=== PATIENT | male | born 1985 | race African-American/Black ===

== ENCOUNTER 2017-09-15 10:08 | Emergency (ER) | payer OTHER ==
[2017-09-15 10:16] VITALS: BP 133/75
--- NOTE | 2017-09-15 11:13 | ED Physician Documentation ---
PD HPI MALE - Stated complaint Stated Complaint: POST OP BLEEDING - Chief complaint Chief Complaint: General - History obtained from History obtained from: Patient - History of Present Illness Timing - onset: Today Timing - duration: Days (1) Timing - details: Abrupt onset Associated symptoms: Hematuria (he had circumcision 2 days ago in [facility] and today noted some blood in urine and slight bit at time of meatus. The incision looks okay.). No: Dysuria, Unable to urinate Similar symptoms before: Has not had sx before Recently seen: Surgery (circumcision 2 days ago) Review of Systems Constitutional: denies: Fever, Chills GI: denies: Abdominal Pain, Nausea, Vomiting, Diarrhea : denies: Discharge PD PAST MEDICAL HISTORY - Past Surgical History Past Surgical History: Yes HEENT: Tonsil/Adenoidectomy - Present Medications Home Medications: Ambulatory Orders Medication Instructions Recorded Confirmed Acetaminophen/Cod 300/30 [Tylenol 1 each PO ONCE 03/22/16 03/22/16 #3] oxyCODONE/ACET 5/325 [Percocet 5 1 - 2 each PO Q6H PRN #14 tablet 03/22/16 mg/325 mg] Doxycycline Monohydrate 100 mg PO BID #14 tablet 09/15/17 - Allergies Allergies/Adverse Reactions: Allergies Allergy/AdvReac Type Severity Reaction Status Date / Time No Known Drug Allergies Allergy Verified 03/22/16 01:15 - Social History Does the pt smoke?: No Smoking Status: Never smoker Does the pt drink ETOH?: Yes Does the pt have substance abuse?: No - Immunizations Immunizations are current?: Yes PD ED PE NORMAL - Vitals Vital signs reviewed: Yes - General General: Alert and oriented X 3, Well developed/nourished - Abdomen Abdomen: Soft, Non tender - Male Male : Other (post circumcision with sutures intact and no drainage. There is redness of the glans with mild swelling. The meatus has slight swelling. No obvious sores nor blisters. Base of the penis is normal. ) - Back Back: No CVA TTP Results - Vitals Vitals: Oxygen O2 Source Room air - Labs Labs: Laboratory Tests 09/15/17 11:35 Urine Color YELLOW Urine Clarity CLEAR Urine pH 6.0 Ur Specific Iraan >=1.030 H Urine Protein NEGATIVE Urine Glucose (UA) NEGATIVE Urine Ketones NEGATIVE Urine Occult Blood LARGE H Urine Nitrite NEGATIVE Urine Bilirubin NEGATIVE Urine Urobilinogen 0.2 (NORMAL) Ur Leukocyte Esterase NEGATIVE Urine RBC TNTC H Urine WBC 0-3 Ur Squamous Epith Cells FEW Squamous Urine Bacteria Few Urine Mucus Few Strands Ur Microscopic Review INDICATED Urine Culture Comments NOT INDICATED PD MEDICAL DECISION MAKING - ED course Complexity details: considered differential (not a direct reason for hematuria post circumcision. Would not have had soto in for it I would think, but perhaps. Consider early urethritis, but would be unusual. There is some redness of the glans without drainage. Could be cellulitis with then irritation of the meatus. The incision/suture line looks good.), d/w patient - Sepsis Event Vital Signs: Oxygen O2 Source Room air Departure - Departure Disposition: 01 Home, Self Care Clinical Impression: Bleeding from urethra in male Post-operative infection Qualifiers: Encounter type: initial encounter Qualified Code(s): T81.4XXA - Infection following a procedure, initial encounter Condition: Stable Record reviewed to determine appropriate education?: Yes Instructions: ED Hematuria Follow-Up: ESTHER WALLIS [Primary Care Provider] - Prescriptions: Doxycycline Monohydrate 100 mg PO BID #14 tablet Comments: Given the recent circumcision surgery, along with some redness and mild swelling of the glands, I be concerned for infection leading to irritation and therefore the bleeding from the tip of the penis. I treated with an antibiotic for tissue infection doxycycline twice daily for a week. The sutures themselves look good. Follow-up with the urologist this coming week if still having bleeding and otherwise follow-up as planned regarding the surgery and sutures. Discharge Date/Time: 09/15/17 12:37
[2017-09-15 11:57] LABS: BILIRUBIN,URINE NEGATIVE (NEGATIVE); GLUCOSE, URINE (UA) NEGATIVE (NEGATIVE); KETONES,URINE (UA) NEGATIVE (NEGATIVE); LEUKOCYTE ESTERASE, URINE NEGATIVE (NEGATIVE); NITRITE,URINE NEGATIVE (NEGATIVE); OCCULT BLOOD,URINE LARGE (NEGATIVE); PROTEIN,URINE NEGATIVE (NEGATIVE); UROBILINOGEN,URINE 0.2 (NORMAL) E.U./dL (NORMAL)
[2017-09-15 12:02] LABS: CLARITY,URINE CLEAR (CLEAR)
[2017-09-15 12:19] LABS: BACTERIA,URINE Few /HPF (None Seen); RBC,URINE TNTC /HPF (0-5); SQUAMOUS EPITHELIAL CELL,UR FEW Squamous (<= Few)
[2017-09-15 12:20] LABS: MUCUS,URINE Few Strands
== END 2017-09-15 12:37 | disposition home or self-care (01) ==
LOC: ED 10:08
DX: R31.9 Hematuria, unspecified (principal); T81.4XXA Infection following a procedure, initial encounter
CPT/HCPCS: 81001; 81003; 87086; 99283

== ENCOUNTER 2017-12-15 19:30 | Emergency (ER) | payer OTHER ==
[2017-12-15] MEDS ORDERED: KETOROLAC 60 MG/2 ML VIAL IM STA (20:24)
--- NOTE | 2017-12-15 20:24 | ED Physician Documentation ---
History of Present Illness - Stated complaint Stated Complaint: LT LEG PX - Chief complaint Chief Complaint: Ext Problem - Additonal information Additional information: 32-year-old male presents the emergency department with complaints of left calf pain for the past several days. The patient denies any trauma or injury. The patient reports pain with flexion and extension. No swelling. No redness. No recent trauma. Symptoms are described as moderate. No other associated symptoms Review of Systems Constitutional: denies: Fever Eyes: denies: Discharge Throat: denies: Sore throat Cardiac: denies: Chest pain / pressure Respiratory: denies: Dyspnea GI: denies: Abdominal Pain Skin: denies: Rash Musculoskeletal: reports: Extremity pain. denies: Neck pain, Joint pain, Extremity swelling, Joint swelling Neurologic: denies: Generalized weakness PD PAST MEDICAL HISTORY - Past Medical History Past Medical History: Yes Cardiovascular: Other Other Past Medical History: Tight IT Band - Past Surgical History Past Surgical History: Yes HEENT: Tonsil/Adenoidectomy - Present Medications Home Medications: Ambulatory Orders Medication Instructions Recorded Confirmed Acetaminophen/Cod 300/30 [Tylenol 1 each PO ONCE 03/22/16 03/22/16 #3] oxyCODONE/ACET 5/325 [Percocet 5 1 - 2 each PO Q6H PRN #14 tablet 03/22/16 mg/325 mg] Doxycycline Monohydrate 100 mg PO BID #14 tablet 09/15/17 - Allergies Allergies/Adverse Reactions: Allergies Allergy/AdvReac Type Severity Reaction Status Date / Time No Known Drug Allergies Allergy Verified 12/15/17 19:43 - Social History Does the pt smoke?: No Smoking Status: Never smoker Does the pt drink ETOH?: Yes Does the pt have substance abuse?: No - Immunizations Immunizations are current?: Yes PD ED PE NORMAL - General General: Alert and oriented X 3, No acute distress - HEENT HEENT: Atraumatic, PERRL, EOMI, Ears normal - Cardiac Cardiac: RRR, Strong equal pulses - Respiratory Respiratory: No respiratory distress - Derm Derm: Normal color, No rash - Extremities Extremities: No deformity, No tenderness to palpate, Normal ROM s pain, No edema. No: No calf tenderness / cord (The patient has tenderness to palpation of the left lateral calf, there is no swelling, skin changes. The patient has normal range of motion of the hip, knee and ankle. There is no signs of joint swelling. The patient has a normal dorsalis pedis pulse and normal cap refill.) Results - Vitals Vitals: Vital Signs - 24 hr 12/15/17 12/15/17 19:47 22:11 Temperature 36.9 C 36.9 C Heart Rate 68 59 L Respiratory 18 16 Rate Blood Pressure 131/71 H 112/72 O2 Saturation 98 100 Oxygen O2 Source Room air - Labs Labs: Laboratory Tests 12/15/17 20:35 Sodium 137 Potassium 3.5 Chloride 105 Carbon Dioxide 24 Anion Gap 8.0 BUN 13 Creatinine 1.1 Estimated GFR (MDRD) 95 Glucose 103 H Calcium 9.0 Total Creatine Kinase 212 - Rads (name of study) US Radiology: Final report received PD MEDICAL DECISION MAKING - ED course ED course: The patient's workup does not reveal any acute abnormality that would necessitate admission to the hospital or further workup in the emergency department. Currently, the patient appears appropriate for discharge and ongoing outpatient management. I discussed with him the findings and plan. The patient understands and agrees. I discussed warning signs and recommended returning to the emergency department immediately for any worsening or any concerns. - Sepsis Event Vital Signs: Vital Signs - 24 hr 12/15/17 12/15/17 19:47 22:11 Temperature 36.9 C 36.9 C Heart Rate 68 59 L Respiratory 18 16 Rate Blood Pressure 131/71 H 112/72 O2 Saturation 98 100 Oxygen O2 Source Room air Departure - Departure Disposition: 01 Home, Self Care Clinical Impression: Lower leg pain Qualifiers: Laterality: unspecified laterality Qualified Code(s): M79.669 - Pain in unspecified lower leg Condition: Good Instructions: ED Strain Muscle Ext Comments: Please follow up with primary care for a re-check. Please return to the ER for worsening symptoms or any concerns
[2017-12-15 20:53] LABS: CREATININE 1.1 mg/dL (0.6-1.2)
--- NOTE | 2017-12-15 21:11 | XRAY Report ---
Reason: leg pain Procedure Date: 12/15/2017 Accession Number: [id number] / [id number] Procedure: XR - Tib/Fib LT CPT Code: FULL RESULT: EXAM: LEFT TIBIA/FIBULA RADIOGRAPHY EXAM DATE: 12/15/2017 09:00 PM. CLINICAL HISTORY: Leg pain. Left calf pain after playing basketball. COMPARISON: 03/22/2016. TECHNIQUE: 2 views. FINDINGS: Bones: Normal. No fracture or bone lesion. Joints: The visualized knee and ankle joints are normal. No effusions. Soft Tissues: No soft tissue abnormalities are identified. No radiopaque foreign bodies. IMPRESSION: 1. No acute osseous abnormalities. [facility]
--- NOTE | 2017-12-15 22:03 | Ultrasound Report ---
Reason: LLE swelling Procedure Date: 12/15/2017 Accession Number: [id number] / [id number] Procedure: US - Duplex Ext Veins Left CPT Code: FULL RESULT: EXAM: LEFT LOWER EXTREMITY VENOUS ULTRASOUND EXAM DATE: 12/15/2017 09:35 PM. CLINICAL HISTORY: Left lower extremity swelling. COMPARISON: None. TECHNIQUE: Real-time sonographic vascular imaging was performed by the flight software test engineer through the lower extremity utilizing both color-flow and Doppler spectral analysis. Multiple collections representative static images were saved for review. FINDINGS: Common Femoral Vein (CFV): Normal. CFV-GSV Junction: Normal. Profunda Femoral Vein (PFV): Normal. Femoral Vein (FV) Prox: Normal. Femoral Vein (FV) Mid: Normal. Femoral Vein (FV) Dist: Normal. Popliteal Vein: Normal. Posterior Tibial Veins: Normal. Peroneal Veins: Normal. Contralateral Side CFV: Normal. Other: None. IMPRESSION: No evidence for deep venous thrombosis. [facility]
[2017-12-15 22:12] VITALS: BP 112/72
== END 2017-12-15 22:14 | disposition home or self-care (01) ==
LOC: ED 19:30
DX: M79.605 Pain in left leg (principal)
CPT/HCPCS: 36415; 80048; 82550; 96372; 99282; 99283

== ENCOUNTER 2018-02-06 12:24 | Outpatient (CLI) | payer OTHER ==
--- NOTE | 2018-02-06 16:46 | MRI Report ---
Reason: PAIN IN LEFT LEG Procedure Date: 02/06/2018 Accession Number: [id number] / [id number] Procedure: MRI - Lower Leg (Tib-Fib) LT W/O CPT Code: 56198 FULL RESULT: EXAM: LEFT CALF/TIBIA MRI WITHOUT CONTRAST EXAM DATE: 02/06/2018 12:03 PM. CLINICAL HISTORY: PAIN IN LEFT LEG. COMPARISON: 12/15/2017 left tibia-fibula radiographs.. TECHNIQUE: Multiplanar, multisequence T1-weighted and fluid-sensitive sequences of the calf/tibia without contrast. Other: None. FINDINGS: Bones: No fractures or subluxations. No marrow edema. No bone lesions. Joint Spaces: Visualized portions of the ankle and knee joints are unremarkable. Tendons: Where visualized, the Achilles and plantaris tendons are intact. Musculature: No edema or fatty atrophy. Other: Numerous dilated superficial veins in the lower extremity. No findings to suggest superficial or deep venous thrombosis. IMPRESSION: 1. Normal marrow signal. No evidence of tibial stress reaction or fracture. 2. Normal bulk and signal intensity of the musculature in the left leg. 3. Prominence of the superficial venous structures in the left leg without findings to suggest venous thrombosis. [facility] MUSCULOSKELETAL RADIOLOGY SECTION
== END 2018-02-06 12:25 | disposition home or self-care (01) ==
LOC: DI 12:24
PROVIDERS: ATTEND Physician Assistant
DX: M79.605 Pain in left leg (principal); I83.92 Asymptomatic varicose veins of left lower extremity

== ENCOUNTER 2018-05-26 22:23 | Emergency (ER) | payer OTHER ==
[2018-05-26 22:33] VITALS: BP 147/93
--- NOTE | 2018-05-26 22:49 | ED Physician Documentation ---
History of Present Illness - Stated complaint Stated Complaint: LF LEG PX - Chief complaint Chief Complaint: General - Additonal information Additional information: 32-year-old male presents the emergency department for evaluation of chronic lower leg pain over the past several months. The patient had an extensive outpatient workup which included MRI, ultrasound, CT scan, evaluation by physical therapy and injections. Tonight the patient reports ongoing pain throughout his Achilles which is worse with walking. The patient reports standing for prolonged periods of time at work. No new injury. No swelling. No pain in the joints. Symptoms are described as moderate. Review of Systems Constitutional: denies: Fever, Fatigue Eyes: denies: Discharge Ears: denies: Ear pain Cardiac: denies: Pedal edema GI: denies: Abdominal Pain Musculoskeletal: reports: Extremity pain. denies: Neck pain, Back pain, Joint pain, Extremity swelling, Joint swelling Neurologic: denies: Generalized weakness, Numbness, Difficulty speaking, Reviewed and negative PD PAST MEDICAL HISTORY - Past Medical History Cardiovascular: Other - Past Surgical History Past Surgical History: Yes HEENT: Tonsil/Adenoidectomy - Present Medications Home Medications: Ambulatory Orders Medication Instructions Recorded Confirmed Meloxicam [Mobic] 7.5 mg PO BID PRN #20 tablet 05/26/18 diazePAM [Valium] 5 mg PO TID PRN #15 tablet 05/26/18 - Allergies Allergies/Adverse Reactions: Allergies Allergy/AdvReac Type Severity Reaction Status Date / Time No Known Drug Allergies Allergy Verified 12/15/17 19:43 - Social History Does the pt smoke?: No Smoking Status: Never smoker Does the pt drink ETOH?: Yes Does the pt have substance abuse?: No - Immunizations Immunizations are current?: Yes PD ED PE NORMAL - General General: Alert and oriented X 3, No acute distress - HEENT HEENT: Atraumatic, PERRL, EOMI, Ears normal - Derm Derm: Normal color - Extremities Extremities: No deformity, Normal ROM s pain, No edema, Other (The patient has full active range of motion of the bilateral hips, knees, ankles and feet. The patient has brisk cap refill. The patient has equal temperature of the lower legs. There is no skin changes. The patient has normal dorsalis pedis pulses. Motor and sensory are intact in the lower extremities. The patient does have tenderness along the Achilles tendon on the left. There is no joint swelling or joint inflammation on examination.) - Neuro Neuro: Alert and oriented X 3, Normal speech - Psych Psych: Normal mood Results - Vitals Vitals: Vital Signs - 24 hr 05/26/18 22:28 Temperature 36.6 C Heart Rate 72 Respiratory 16 Rate Blood Pressure 147/93 H O2 Saturation 100 Oxygen O2 Source Room air PD MEDICAL DECISION MAKING - ED course ED course: The patient's had an extensive workup over the past several months, there is no clinical findings to suggest acute DVT, fracture and currently I do not think an ultrasound or x-ray would be of much utility. The patient's symptoms may represent a tendinitis. Currently, the patient appears appropriate for discharge with outpatient management. I recommended follow-up with orthopedics and to continue the physical therapy. I discussed warning signs and recommended returning for any worsening or any concerns Departure - Departure Disposition: 01 Home, Self Care Clinical Impression: Leg pain Qualifiers: Laterality: left Qualified Code(s): M79.605 - Pain in left leg Condition: Good Instructions: Achilles Tendonitis Follow-Up: [facility] [place] [Provider Group] - Within 1 week [facility] [Provider Group] - Within 1 week (Please call to schedule a follow-up appointment with orthopedics for further evaluation of your ongoing pain) Prescriptions: diazePAM [Valium] 5 mg PO TID PRN #15 tablet PRN Reason: Spasms Meloxicam [Mobic] 7.5 mg PO BID PRN #20 tablet PRN Reason: Pain Comments: Please return for worsening symptoms or any concerns Discharge Date/Time: 05/26/18 22:56
[2018-05-26] MEDS ORDERED: diazePAM 5 MG TABLET PO STA (22:51)
== END 2018-05-26 22:56 | disposition home or self-care (01) ==
LOC: ED 22:23
DX: M79.662 Pain in left lower leg (principal)
CPT/HCPCS: 99283; A9270

== ENCOUNTER 2023-12-19 17:43 | Emergency (ER) | payer OTHER ==
[2023-12-19 18:04] VITALS: O2SAT 99
--- NOTE | 2023-12-19 18:53 | ED Physician Documentation ---
History of Present Illness - Stated complaint Stated Complaint: COUGH - Chief complaint Chief Complaint: Resp - History obtained from History obtained from: Patient - History of Present Illness Timing: How many weeks ago (2) Pain level max: 0 Pain level now: 0 - Additonal information Additional information: Patient is a 38-year-old male who presents to the emergency department after having a cough for the past 2 weeks. Nothing seems to make it better or worse. No fevers. No chills. No respiratory distress. No difficulty breathing. He states that the cough has not really gotten any better, so decided to come and get checked out. He is [employer], [place] Does not smoke or vape. Review of Systems Constitutional: denies: Fever, Chills GI: denies: Abdominal Pain, Nausea, Vomiting, Diarrhea Skin: denies: Rash Neurologic: denies: Headache PD PAST MEDICAL HISTORY - Past Medical History Past Medical History: Yes Cardiovascular: Other Respiratory: None Neuro: None Endocrine/Autoimmune: None GI: None : None HEENT: None Psych: None Musculoskeletal: None, Osteoporosis Derm: None - Past Surgical History Past Surgical History: Yes HEENT: Tonsil/Adenoidectomy - Present Medications Home Medications: Ambulatory Orders Medication Instructions Recorded Confirmed No Known Home Medications 12/19/23 12/19/23 - Allergies Allergies/Adverse Reactions: Allergies Allergy/AdvReac Type Severity Reaction Status Date / Time No Known Drug Allergies Allergy Verified 12/19/23 17:53 - Social History Does the pt smoke?: No Smoking Status: Never smoker Does the pt drink ETOH?: Yes Does the pt have substance abuse?: No - Immunizations Immunizations are current?: Yes - POLST Patient has POLST: No PD ED PE NORMAL - Vitals Vital signs reviewed: Yes - General General: Alert and oriented X 3, No acute distress - HEENT HEENT: PERRL, Moist mucous membranes, Pharynx benign - Neck Neck: Supple, no meningeal sign - Cardiac Cardiac: RRR, Strong equal pulses - Respiratory Respiratory: No respiratory distress, Clear bilaterally - Abdomen Abdomen: Soft, Non tender, Non distended - Derm Derm: Warm and dry - Extremities Extremities: No edema - Neuro Neuro: Alert and oriented X 3 - Psych Psych: Normal mood, Normal affect Results - Vitals Vitals: Vital Signs - 24 hr 12/19/23 12/19/23 17:53 20:01 Temperature 36.5 C Heart Rate 68 71 Respiratory 16 16 Rate Blood Pressure 144/81 H 149/96 H O2 Saturation 99 99 Oxygen O2 Source Room air - Labs Labs: Laboratory Tests 12/19/23 18:47 Nasal Adenovirus (PCR) NOT DETECTED Nasal B. parapertussis DNA (PCR) NOT DETECTED Nasal Coronavir 229E PCR NOT DETECTED Nasal Coronavir HKU1 PCR NOT DETECTED Nasal Coronavir NL63 PCR NOT DETECTED Nasal Coronavir OC43 PCR NOT DETECTED Nasal Enterovir/Rhinovir PCR NOT DETECTED Nasal Influenza B PCR NOT DETECTED Nasal Influenza A PCR NOT DETECTED Nasal Parainfluen 1 PCR NOT DETECTED Nasal Parainfluen 2 PCR NOT DETECTED Nasal Parainfluen 3 PCR NOT DETECTED Nasal Parainfluen 4 PCR NOT DETECTED Nasal RSV (PCR) NOT DETECTED Nasal B.pertussis DNA PCR NOT DETECTED Nasal C.pneumoniae (PCR) NOT DETECTED Gregory Human Metapneumo PCR NOT DETECTED Nasal M.pneumoniae (PCR) NOT DETECTED Nasal SARS-CoV-2 (PCR) NOT DETECTED - Rads (name of study) cxr Relevant Findings:: Final report received, See rad report PD Medical Decision Making - ED course Complexity details: reviewed results, re-evaluated patient, considered differential, d/w patient ED course: Patient is very well-appearing, nontoxic. Afebrile. No hypoxia. No respiratory distress. Respiratory PCR is negative. Chest x-ray is negative. Patient can use [id number] cough medication as needed. No indication for antibiotics. [place] No evidence of pneumonia. Patient counseled regarding signs and symptoms for which I believe and urgent re-evaluation would be necessary. Patient with good understanding of and agreement to plan and is comfortable going home at this time This document was made in part using voice recognition software. While efforts are made to proofread this document, sound alike and grammatical errors may occur. Departure - Departure Disposition: 01 Home, Self Care Clinical Impression: Viral URI with cough Condition: Good Instructions: ED Viral Syndrome Follow-Up: your,doctor in 1 week [Other] Comments: Your chest x-ray does not show any acute abnormalities. There is no evidence of pneumonia. This appears to be a viral syndrome. You can check the results of your respiratory PCR panel on the patient portal at [email or web address] Forms: PCP List Discharge Date/Time: 12/19/23 20:01
--- NOTE | 2023-12-19 19:24 | XRAY Report ---
PROCEDURE: Chest 2V INDICATIONS: cough TECHNIQUE: 2 views of the chest were acquired. COMPARISON: None. FINDINGS: Surgical changes and devices: None. Lungs and pleura: No pleural effusions or pneumothorax. Lungs are clear. Mediastinum: Mediastinal contours appear normal. Heart size is normal. Bones and chest wall: No suspicious bony lesions. Overlying soft tissues appear unremarkable. IMPRESSION: No acute cardiopulmonary process. Reviewed by: Eliane Boudreaux MD on 12/19/2023 7:22 PM PDT Approved by: Eliane Boudreaux MD on 12/19/2023 7:22 PM PDT Station ID: [id number]
[2023-12-19 19:53] LABS: B. PARAPERTUSSIS- RESP PCR PAN NOT DETECTED; B. PERTUSSIS- RESP PCR PANEL NOT DETECTED; C. PNEUMONIAE- RESP PCR PANEL NOT DETECTED; CORONAVIRUS 229E-RESP PCR NOT DETECTED; CORONAVIRUS HKU1-RESP PCR NOT DETECTED; CORONAVIRUS NL63-RESP PCR NOT DETECTED; CORONAVIRUS OC43-RESP PCR NOT DETECTED; HUMAN METAPNEUMOVIRUS NOT DETECTED; INFLUENZA A- RESP PCR PANEL NOT DETECTED; INFLUENZA B - RESP PCR PANEL NOT DETECTED; M. PNEUMONIAE- RESP PCR PANEL NOT DETECTED; PARAINFLUENZA VIRUS 1 NOT DETECTED; PARAINFLUENZA VIRUS 2 NOT DETECTED; PARAINFLUENZA VIRUS 3 NOT DETECTED; PARAINFLUENZA VIRUS 4 NOT DETECTED; RHINOVIRUS/ENTEROVIRUS NOT DETECTED; RSV- RESP PCR PANEL NOT DETECTED; SARS-CoV-2 -RESP PCR PANEL NOT DETECTED
[2023-12-19 20:02] VITALS: BP 149/96
== END 2023-12-19 20:01 | disposition home or self-care (01) ==
LOC: ED 17:43
DX: J06.9 Acute upper respiratory infection, unspecified (principal)
CPT/HCPCS: 87633; 99283